=== PATIENT | female | born 1990 | race Caucasian/White ===

== ENCOUNTER 2016-10-04 23:43 | Emergency (ER) | payer MEDICAID ==
[~2016-10-04] VITALS: Ht 175.3 cm; Wt 113.4 kg
[2016-10-05 00:13] VITALS: BP 159/85
== END 2016-10-05 02:51 | disposition home or self-care (01) ==
LOC: ER 23:43
DX: H92.02 Otalgia, left ear (principal)
CPT/HCPCS: 99282; 99406; A4606; Z7610